=== PATIENT | female | born 1980 | race Hispanic/Latino ===

== ENCOUNTER 2018-05-02 22:20 | Emergency (ER) | payer OTHER ==
[~2018-05-02] VITALS: Ht 157.5 cm; Wt 74.4 kg
[2018-05-03 00:15] LABS: AMPHETAMINES SCREEN,URINE NEGATIVE (NEGATIVE); BENZODIAZEPINES SCREEN,URINE NEGATIVE (NEGATIVE); PHENCYCLIDINE SCREEN,URINE NEGATIVE (NEGATIVE)
[2018-05-03 00:16] LABS: PREGNANCY TEST, URINE POSITIVE (NEGATIVE)
[2018-05-03 00:44] LABS: CLARITY,URINE CLEAR (CLEAR); COLOR,URINE YELLOW (YELLOW); LEUKOCYTE ESTERASE ,URINE NEGATIVE (NEGATIVE)
[2018-05-03 00:45] LABS: BILIRUBIN,URINE NEGATIVE (NEGATIVE); KETONES,URINE TRACE (NEGATIVE); NITRITE,URINE NEGATIVE (NEGATIVE); PROTEIN,URINE DIPSTICK NEGATIVE (NEGATIVE); URINE UROBILINOGEN 1 mg/dL (0.2 - 1)
[2018-05-03 00:48] LABS: BACTERIA,URINE FEW /HPF; RBC,URINE 0-5 /HPF (0-5); WBC,URINE (MAN) 0-5 /HPF (0-5)
[2018-05-03 00:49] LABS: EPITHELIAL CELLS,URINE MANY /LPF
[2018-05-03 00:54] VITALS: BP 114/82
== END 2018-05-03 00:59 | disposition home or self-care (01) ==
LOC: ER 22:20
DX: R11.0 Nausea (principal); Z33.1 Pregnant state, incidental
CPT/HCPCS: 80307; 81001; 81025; 83518; 87070; 99282